=== PATIENT | female | born 1940 | race Hispanic/Latino ===

== ENCOUNTER 2017-07-06 07:12 | Day surgery (SDC) | payer MEDICARE ==
[2017-06-29 11:51] VITALS: BMI 22.4
[2017-07-06 07:53] VITALS: TEMP 97.7
[2017-07-06] MEDS ORDERED: Propofol 10 mg/ml Inj (20 ML) ONE (08:22)
[2017-07-06] MEDS ORDERED: Lactated Ringer's 1,000 ML IV SCH (08:34)
[2017-07-06 10:48] VITALS: BP 142/81; PULSE 75; RESP 18; O2SAT 98
== END 2017-07-06 11:08 | disposition home or self-care (01) ==
LOC: ENDO 07:12
PROVIDERS: ATTEND Internal Medicine
DX: Z12.11 Encounter for screening for malignant neoplasm of colon (principal); K64.8 Other hemorrhoids
CPT/HCPCS: 45378; J2001; J2704; J7040; J7120

== ENCOUNTER 2019-03-03 12:30 | Outpatient (CLI) | payer MEDICARE | END 2019-03-03 12:31 | disposition home or self-care (01) | LOC: RAD 12:30 ==